=== PATIENT | male | born 1970 | race American Indian/Alaskan Native ===

== ENCOUNTER 2019-11-22 11:57 | Emergency (ER) | payer SELFPAY ==
[2019-11-22 12:08] VITALS: BP 124/74
--- NOTE | 2019-11-22 12:56 | Emergency Department Report ---
Chief Complaint: Extremity Problem,Nontraumatic Stated Complaint: LEFT LEG PAIN Time Seen by Provider: 11/22/19 12:50 - HPI History of Present Illness: 49 y/o male comes in for leg thigh muscle pain times 6 days ago. Denies any trauma. No pain medication taken. Does no smoke no travels. Worst with standing for a long period of time. - Exam Vital Signs: Vital Signs 11/22/19 12:06 Temperature 98.8 F Pulse Rate 85 Respiratory 16 Rate Blood Pressure 124/74 [Right] O2 Sat by Pulse 99 Oximetry Physical Exam: AxO 3 NAD Ambulatinging without Difficulties. FROM. mild thigh muscle tenderness. No swelling. MSE screening note: Focused history and physical exam performed. Due to findings the following was ordered: 49 y/o male comes in for leg thigh muscle pain times 6 days ago. Denies any trauma. No pain medication taken. Does no smoke no travels. Worst with standing for a long period of time. Recommend over the counter Tylenol and or IB and to follow up with his PCP. ED Disposition for MSE Disposition: MED SCREENING EXAM-LEFT Is pt being admited?: No Does the pt Need Aspirin: No Condition: Stable
== END 2019-11-22 12:55 | disposition left against medical advice (07) ==
LOC: EDSEX → ED 11:57
DX: M79.652 Pain in left thigh (principal)
CPT/HCPCS: 99281